=== PATIENT | female | born 1995 ===

== ENCOUNTER 2017-10-08 14:06 | Emergency (ER) | payer MEDICAID ==
[2017-10-08 14:07] VITALS: BMI 41.1
[2017-10-08 14:27] VITALS: BP 134/72; PULSE 71; RESP 16; TEMP 98.2; O2SAT 99
--- NOTE | 2017-10-08 16:16 | ED PDOC ---
HPI: CCC, URI, Sore Throat Time Seen by Provider: 10/08/17 16:05 Chief Complaint (Nursing): ENT Problem Chief Complaint (Provider): ear pain History Per: Patient Additional Complaint(s): 22-year-old female presents with right-sided neck pain that started as of waking up this morning. Patient believes she may have slept in a position that caused the pain. She denies any headache, dizziness, vision changes, fever or chills. Patient states pain radiates to her right jaw and right ear. Patient took Tylenol earlier which helped only minimally. She is currently breast- feeding and had a 5 days ago. PMD: [facility] Past Medical History Reviewed: Historical Data, Nursing Documentation, Vital Signs Vital Signs: Last Vital Signs Temp 98.2 F 10/08/17 14:25 Pulse 71 10/08/17 14:25 Resp 16 10/08/17 14:25 BP 134/72 10/08/17 14:25 Pulse Ox 99 10/08/17 17:41 - Medical History PMH: No Chronic Diseases - Surgical History Surgical History: - Family History Family History: States: No Known Family Hx - Living Arrangements Living Arrangements: With Family - Social History Current smoker - smoking cessation education provided: No Alcohol: None Drugs: Denies - Home Medications Home Medications: Ambulatory Orders Medication Instructions Recorded No Known Home Med 04/30/17 - Allergies Allergies/Adverse Reactions: Allergies Allergy/AdvReac Type Severity Reaction Status Date / Time No Known Allergies Allergy Verified 04/30/17 18:22 Review of Systems ROS Statement: Except As Marked, All Systems Reviewed And Found Negative Constitutional: Negative for: Fever Musculoskeletal: Positive for: Neck Pain Physical Exam - Reviewed Nursing Documentation Reviewed: Yes Vital Signs Reviewed: Yes - Physical Exam Appears: Positive for: Well, Non-toxic, No Acute Distress Skin: Negative for: Rash Eye Exam: Positive for: Normal appearance ENT: Positive for: Normal ENT Inspection, Other (Tympanic membranes bilaterally , dentition overall intact, airway patent, uvula midline) Neck: Positive for: Pain On Movement Of Neck (Palpable muscle spasm noted to right lateral neck with decreased range of motion, no midline tenderness or step -off) Cardiovascular/Chest: Positive for: Regular Rate, Rhythm Respiratory: Positive for: Normal Breath Sounds Extremity: Positive for: Normal ROM Neurologic/Psych: Positive for: Alert, Oriented - ECG O2 Sat by Pulse Oximetry: 99 Pulse Ox Interpretation: Normal Medical Decision Making Medical Decision Making: Impression: Torticollis Patient was medicated with Tylenol and Motrin in ED. She reports improvement to pain after these meds were given. Patient is currently breast-feeding and was advised to continue with Tylenol and Motrin for pain control. She was instructed to follow up with clinic in 2-3 days or return to ED any time if acutely worse. Disposition - Clinical Impression Clinical Impression: Cervical strain - Patient ED Disposition Is Patient to be Admitted: No Counseled Patient/Family Regarding: Diagnosis, Need For Followup - Disposition Referrals: [facility] [place] [facility] [Outside] Disposition: Routine/Home Disposition Time: 17:08 Condition: STABLE Additional Instructions: Take [id number] Tylenol every 4 hours and Motrin every 6 hours for pain control. Rest affected area and avoid heavy lifting. Follow-up with clinic in 2- 3 days. Instructions: Cervical Strain (DC) Forms: [employer] ([place])
== END 2017-10-08 17:36 | disposition home or self-care (01) ==
LOC: H.ER 14:06
DX: S16.1XXA Strain of muscle, fascia and tendon at neck level, initial encounter (principal); Y92.89 Other specified places as the place of occurrence of the external cause